=== PATIENT | male | born 1960 | race Two or more races ===

== ENCOUNTER 2019-09-30 15:47 | Inpatient (IN) | payer MEDICAID, OTHER ==
[~2019-09-30] VITALS: Ht 175.3 cm; Wt 69.1 kg
[2019-09-30] MEDS ORDERED: MORPHINE SULFATE 4 MG/ML SYR/VIAL IV ONE (16:15)
[2019-09-30] MEDS ORDERED: ONDANSETRON HCL 4 MG/2 ML VIAL IV ONE (16:15)
[2019-09-30 16:18] LABS: Basophils # (auto) 0 uL; Basophils % (auto) 0.3 % (0.0-2.0); Eosinophils # (auto) 0.3 uL; Eosinophils % (auto) 2.2 % (0.0-7.0); Hematocrit 47.8 % (41.0-53.0); Hemoglobin 16.2 g/dL (13.5-17.5); Lymphocytes % (auto) 21.9 % (10.0-50.0); Mean Corpuscular Hemoglobin 30.9 pg (28.0-32.0); Mean Corpuscular Hgb Conc. 33.8 g/dL (32.0-36.0); Mean Corpuscular Volume 91.3 fL (80.0-100.0); Monocytes # (auto) 1.2 uL; Monocytes % (auto) 8.4 % (0.0-12.0); Neutrophils # (auto) 9.2 uL; Neutrophils % (auto) 67.2 % (37.0-80.0); Nucleated Red Blood Cells % 0.1 %; Platelet Count (auto) 368 10^3/uL (140-450); Red Blood Cells 5.24 10^6/uL (4.5-5.90); Red Cell Distribution Width 14.5 % (11.8-14.3); White Blood Cell 13.8 10^3/uL (4.4-10.8)
[2019-09-30 16:34] LABS: Albumin 3.4 g/dL (3.4-5.0); Anion Gap 9 (5-15); Blood Urea Nitrogen 15 mg/dL (7-18); Calcium 9.1 mg/dL (8.5-10.1); Carbon Dioxide 24 mmol/L (21-32); Chloride 103 mmol/L (98-107); Glucose 300 mg/dL (74-106); Magnesium 2.1 mg/dL (1.6-2.6); Potassium 4.1 mmol/L (3.5-5.1); Sodium 136 mmol/L (136-145)
[2019-09-30 16:39] LABS: Alanine Aminotransferase 23 U/L (16-61); Alkaline Phosphatase 103 U/L (45-117); Aspartate Aminotransferase 17 U/L (15-37); BUN/Creatinine Ratio 12.8; Bilirubin, Total 0.6 mg/dL (0.2-1.0); GFR African American 82 mL/min; GFR Non-African American 67 mL/min; Total Protein 7.2 g/dL (6.4-8.2)
[2019-09-30 16:56] LABS: INR 1.04 (0.9-1.15); Partial Thromboplastin Time 28.1 sec (23.64-32.05)
[2019-09-30] MEDS ORDERED: GABAPENTIN 300 MG CAP PO ONE (17:45)
[2019-09-30] MEDS ORDERED: NITROGLYCERIN 50MG/250ML 250 ML IV ONE (17:45)
[2019-09-30] MEDS ORDERED: HEPARIN SODIUM (PORCINE) 5000 UNITS/ML 1ML VIAL IV ONE (17:45)
[2019-09-30] MEDS ORDERED: HYDROcodone-ACET 5/325MG TAB PO PRN (18:00)
[2019-09-30] MEDS ORDERED: ACETAMINOPHEN 500 MG TAB PO PRN (18:00)
[2019-09-30] MEDS ORDERED: hydrALAZINE HCL 20 MG/ML VL IV PRN (18:00)
[2019-09-30] MEDS ORDERED: DEXTROSE (50%) 50ML SYRG IV PRN (18:00)
[2019-09-30] MEDS ORDERED: NITROGLYCERIN 0.4 MG SL TAB SL PRN (18:00)
[2019-09-30] MEDS ORDERED: ONDANSETRON HCL 4 MG/2 ML VIAL IV PRN (18:00)
[2019-09-30] MEDS ORDERED: SODIUM CHLORIDE 0.9% 1,000 ML IV ONE (18:00)
[2019-09-30] MEDS ORDERED: MORPHINE SULF INJ 2 MG/ML SYRINGE 1ML IV PRN (18:00)
[2019-09-30] MEDS: ATORVASTATIN 20 MG TAB PO SCH (22:28)
[2019-09-30] MEDS: METOPROLOL TARTRATE 25 MG TAB PO SCH (22:28)
[2019-09-30] MEDS: ACCU-CHEK COMFORT CURVE STRIP VI SCH (22:41)
[2019-09-30] MEDS: InsuLIN REG 1unit/0.01ml Soln (100units/ml) SC SCH (22:41)
[2019-10-01] MEDS ORDERED: HEPARIN DRIP/D5W 100UNITS/ML 250 ML IV SCH (00:30)
[2019-10-01 06:36] LABS: BUN/Creatinine Ratio 19.1; Calcium 8.6 mg/dL (8.5-10.1); Potassium 4.2 mmol/L (3.5-5.1)
[2019-10-01] MEDS: ACCU-CHEK COMFORT CURVE STRIP VI SCH ×4 (07:07→21:46)
[2019-10-01] MEDS: InsuLIN REG 1unit/0.01ml Soln (100units/ml) SC SCH ×5 (07:09→21:46)
[2019-10-01] MEDS: ASPirin-EC 81 mg tab PO SCH (10:30)
[2019-10-01] MEDS: METOPROLOL TARTRATE 25 MG TAB PO SCH ×2 (10:31→21:46)
[2019-10-01] MEDS: LISINOPRIL 10 MG TAB PO SCH (10:31)
[2019-10-01] MEDS: FAMOTIDINE 20 MG TAB PO SCH (10:31)
[2019-10-01] MEDS ORDERED: ADENOSINE 53 MG in GIVE UN-DILUTED 0 ML IV ONE (12:45)
[2019-10-01] MEDS: GABAPENTIN 400 MG CAP PO SCH ×2 (14:00→21:46)
[2019-10-01] MEDS ORDERED: LIDOCAINE 2%HCL (LOCAL ANESTH.) INJ 20ML MDV ONE (14:06)
[2019-10-01] MEDS ORDERED: IOHEXOL 350 MG/ML 100ML IJ ONE ×2 (14:06→14:38)
[2019-10-01] MEDS ORDERED: ANGIOMAX 250 MG VIAL IV ONE (14:10)
[2019-10-01] MEDS ORDERED: SODIUM CHL 0.9% 50 ML ONE ×2 (14:11→14:52)
[2019-10-01] MEDS ORDERED: MIDAZOLAM HCL 1MG/1ML-2 ML VIAL ONE ×2 (14:11→14:56)
[2019-10-01] MEDS ORDERED: fentaNYL CITRATE 100 MCG/2 ML VL ONE ×2 (14:11→14:55)
[2019-10-01] MEDS ORDERED: ADENOSINE 90 MG/30 ML INJ IV ONE (14:52)
[2019-10-01] MEDS ORDERED: diphenhdrAMINE HCL 50 MG/1 ML VL ONE (15:14)
[2019-10-01] MEDS ORDERED: METOPROLOL TARTRATE 1MG/1ML-5ML VIAL IV ONE ×3 (15:14→17:00)
[2019-10-01] MEDS ORDERED: FLUMAZENIL 0.1 MG/ML INJ 10ML MDV IV ONE ×2 (16:15→16:21)
--- NOTE | 2019-10-01 17:15 | NUR ---
Received report from Cashier Supervisor ALMA Bro that patient will not be on Heparin drip when patient is transferred to the floor, they will discontinue the Heparin drip order, patient to lay flat in bed up to 8:00 pm tonight. Patient to stay at Cashier Supervisor around 20 minutes more before transfer to the floor ([id number] [id number]).
--- NOTE | 2019-10-01 17:31 | NUR ---
Telemetry admit from Para Educator NATALYA TRISTAN admitted to Telemetry unit after SBAR received. Patient oriented to Melissa Hoff RN, unit, room, bed, and unit policies regarding patient care and visiting hours. Patient now on continuous telemetry monitoring, tele box # 77 and telemetry reading on arrival to unit is 78. Patient placed on standby bedside oxygen, weighed by bed scale and encouraged to call if he needs something. All questions and concerns addressed, patient verbalized understanding. Note: Patient is sleepy, no acute distress noted.
--- NOTE | 2019-10-01 17:35 | NUR ---
Patient sleepy. Patient to lay flat in bed until 8:00 pm tonight, okay to sit up at 8:00 pm when the right groin has no bleeding as per Platen Builder Up ALMA Bro. Bed alarm on.
--- NOTE | 2019-10-01 18:20 | NUR ---
Patient sitting up in bed, eating dinner. Explained to patient he's allowed to sit up at 8:00 pm. Patient continue to eat. Right groin dressing no bleeding noted.
[2019-10-01 18:22] LABS: INR 1.14 (0.9-1.15); Partial Thromboplastin Time 48.5 sec (23.64-32.05)
--- NOTE | 2019-10-01 19:00 | NUR ---
Endorsed patient to night auditor RN Selvin. Heparin drip not to be continued as reported by Evp ALMA Bro. Pharmacy is aware.
--- NOTE | 2019-10-01 20:00 | NUR ---
OPENING SHIFT NOTE RECEIVED REPORT FROM DAYSHIFT RN. ASSUMING ROLE OF CARE OF PATIENT AT THIS TIME. PATIENT EDUCATED ON PLAN OF CARE FOR THE NIGHT. PATIENT FOUND SITTING UP AT BEDSIDE. PATIENT EDUCATED ON NECESSITY OF LYING FLAT IN BED DUE TO PROCEDURE. PATIENT APPEARED RELUCTANT AND CHOSE TO REMAIN SITTING UP. INCISION SITE INSPECTED AND DRESSING IS CLEAN DRY AND INTACT. BED LOWERED, CALL LIGHT WITHIN REACH, AND PATIENT WILL BE ROUNDED ON EVERY HOUR AND NEEDED.
--- NOTE | 2019-10-01 20:30 | NUR ---
IV removal IV DC'd with clean sterile technique, catheter fully intact. Pressure dressing applied to site. Patient tolerated well. NOTE: IV LOCATED IN RIGHT AC. PATIENT STATES THAT IT FELL OFF. DRESSING APPLIED AND WILL CONTINUE TO MONITOR.
[2019-10-01] MEDS: ATORVASTATIN 20 MG TAB PO SCH (21:45)
[2019-10-01 22:00] VITALS: BP 140/77
--- NOTE | 2019-10-02 | NUR ---
HOSPITALIST PAGED PATIENT REQUESTING SLEEPING AID. WILL AWAIT CALL BACK OR ORDERS.
[2019-10-02] MEDS ORDERED: TEMAZEPAM 15 MG CAP PO ONE (00:45)
[2019-10-02] MEDS: MORPHINE SULF INJ 2 MG/ML SYRINGE 1ML IV PRN (00:46)
--- NOTE | 2019-10-02 04:53 | NUR ---
PATIENT COMPLAINING OF CHEST PRESSURE EKG PERFORMED. NORMAL SINUS RHYTHM. PATIENT CURRENTLY REFUSING BOTH MORPHINE AND NITRO GLYCERIN AT THIS TIME. BP 130/78 AND HR 95. WILL CONTINUE TO MONITOR.
[2019-10-02 05:14] VITALS: BP 138/78
--- NOTE | 2019-10-02 06:20 | NUR ---
PATIENT AGREES TO TAKE MORPHINE FOR CHEST PAIN AFTER EDUCATING PATIENT ON PROTOCOL FOR CHEST PAIN. PATIENT AGREES TO TAKE MORPHINE FOR CHEST PAIN. PATIENT CONTINUES TO REFUSE NITROGLYCERIN. WILL CONTINUE TO MONITOR.
[2019-10-02] MEDS: ACCU-CHEK COMFORT CURVE STRIP VI SCH ×4 (06:25→21:54)
[2019-10-02] MEDS: GABAPENTIN 400 MG CAP PO SCH ×3 (06:25→21:53)
[2019-10-02] MEDS: InsuLIN REG 1unit/0.01ml Soln (100units/ml) SC SCH ×4 (06:27→21:55)
[2019-10-02 07:15] LABS: Basophils # (auto) 0.1 uL; Basophils % (auto) 0.8 % (0.0-2.0); Eosinophils # (auto) 0.3 uL; Eosinophils % (auto) 1.7 % (0.0-7.0); Hematocrit 46.8 % (41.0-53.0); Hemoglobin 15.5 g/dL (13.5-17.5); Lymphocytes % (auto) 11.5 % (10.0-50.0); Mean Corpuscular Hemoglobin 30.2 pg (28.0-32.0); Mean Corpuscular Hgb Conc. 33.1 g/dL (32.0-36.0); Mean Corpuscular Volume 91.2 fL (80.0-100.0); Monocytes # (auto) 1.3 uL; Monocytes % (auto) 7.3 % (0.0-12.0); Neutrophils # (auto) 13.4 uL; Neutrophils % (auto) 78.7 % (37.0-80.0); Nucleated Red Blood Cells % 0.2 %; Platelet Count (auto) 325 10^3/uL (140-450); Red Blood Cells 5.13 10^6/uL (4.5-5.90); Red Cell Distribution Width 14.6 % (11.8-14.3); White Blood Cell 17.1 10^3/uL (4.4-10.8)
--- NOTE | 2019-10-02 07:30 | NUR ---
Opening Shift Note RECEIVED REPORT FROM NOC RN. Assumed care of patient, awake and alert. No S/S of distress/SOB or pain. BED IN LOWEST, LOCKED POSITION WITH SIDERAILS UP x2 AND CALL LIGHT WITHIN REACH. Instructed on POC and to call for assist PRN, will continue to monitor for changes Q1hr and PRN.
[2019-10-02 08:21] LABS: Potassium 3.8 mmol/L (3.5-5.1)
[2019-10-02 08:22] LABS: BUN/Creatinine Ratio 16.9; Calcium 8.9 mg/dL (8.5-10.1)
--- NOTE | 2019-10-02 08:25 | NUR ---
CRITICAL LAB VALUE TROPONIN 14.7
--- NOTE | 2019-10-02 08:45 | NUR ---
PAGED HOSPITALIST REGARDING CRITICAL LAB VALUE.
[2019-10-02 09:00] VITALS: BP 143/80
[2019-10-02] MEDS: ASPirin-EC 81 mg tab PO SCH (10:00)
[2019-10-02] MEDS: CLOPIDOGREL BISULFATE 75 MG TAB PO SCH (10:00)
[2019-10-02] MEDS: METOPROLOL TARTRATE 25 MG TAB PO SCH ×2 (10:01→21:54)
[2019-10-02] MEDS: FAMOTIDINE 20 MG TAB PO SCH (10:01)
[2019-10-02] MEDS: LISINOPRIL 10 MG TAB PO SCH (10:01)
[2019-10-02 11:36] LABS: Urine Bacteria NONE SEEN /hpf (None Seen); Urine Blood Negative /uL (Negative); Urine Specific Gravity 1.016 (1.001-1.035); Urine WBC <1 /hpf (0 - 3)
[2019-10-02] MEDS ORDERED: DOCUSATE SOD 100 MG CAP PO PRN (14:45)
--- NOTE | 2019-10-02 15:12 | NUR ---
CRITICAL LAB VALUE TROPONIN 12.5
[2019-10-02 17:00] VITALS: BP 132/85
[2019-10-02] MEDS: ATORVASTATIN 20 MG TAB PO SCH (21:52)
[2019-10-02 22:00] VITALS: BP 142/76
[2019-10-03] VITALS (10 sets, daily range): BP systolic 100–157; BP diastolic 57–91
[2019-10-03] MEDS: GABAPENTIN 400 MG CAP PO SCH ×3 (06:18→22:19)
[2019-10-03] MEDS: ACCU-CHEK COMFORT CURVE STRIP VI SCH ×4 (06:25→22:21)
[2019-10-03] MEDS: InsuLIN REG 1unit/0.01ml Soln (100units/ml) SC SCH ×4 (06:26→22:24)
--- NOTE | 2019-10-03 07:12 | NUR ---
laborer general called re patient will have LHC at 8am. Patient informed of POC and states he will sign the consent once he spoke with MD. Advised patient not to eat anything, patient verbalized understanding. Endorsed care to Roberta MARQUEZ.
[2019-10-03 07:22] LABS: Basophils # (auto) 0.2 uL; Basophils % (auto) 1.5 % (0.0-2.0); Eosinophils # (auto) 0.4 uL; Eosinophils % (auto) 3.1 % (0.0-7.0); Hemoglobin 15.9 g/dL (13.5-17.5); Lymphocytes # (auto) 2.7 uL; Lymphocytes % (auto) 21.4 % (10.0-50.0); Mean Corpuscular Hemoglobin 30.7 pg (28.0-32.0); Mean Corpuscular Hgb Conc. 33.8 g/dL (32.0-36.0); Mean Corpuscular Volume 90.9 fL (80.0-100.0); Monocytes # (auto) 1.5 uL; Monocytes % (auto) 11.8 % (0.0-12.0); Neutrophils # (auto) 7.9 uL; Neutrophils % (auto) 62.2 % (37.0-80.0); Nucleated Red Blood Cells % 0.2 %; Platelet Count (auto) 326 10^3/uL (140-450); Red Blood Cells 5.18 10^6/uL (4.5-5.90); Red Cell Distribution Width 14.5 % (11.8-14.3); White Blood Cell 12.7 10^3/uL (4.4-10.8)
[2019-10-03 07:30] LABS: Anion Gap 7 (5-15); Blood Urea Nitrogen 21 mg/dL (7-18); Calcium 9.4 mg/dL (8.5-10.1); Carbon Dioxide 23 mmol/L (21-32); Chloride 109 mmol/L (98-107); Cholesterol 146 mg/dL (< 200); Glucose 201 mg/dL (74-106); Magnesium 2.1 mg/dL (1.6-2.6); Sodium 139 mmol/L (136-145)
[2019-10-03] MEDS ORDERED: HEPARIN IN NS 1000Units/500mL 1,500 ML ONE (07:31)
[2019-10-03] MEDS ORDERED: LIDOCAINE 2%HCL (LOCAL ANESTH.) INJ 20ML MDV ONE (07:31)
[2019-10-03] MEDS ORDERED: IOHEXOL 350 MG/ML 100ML IJ ONE ×3 (07:31→08:40)
[2019-10-03 07:35] LABS: BUN/Creatinine Ratio 25.6; GFR African American 123 mL/min; GFR Non-African American 102 mL/min; HDL Cholesterol 21 mg/dL (40-59); Triglycerides 445 mg/dL (< 150)
--- NOTE | 2019-10-03 08:00 | NUR ---
RECEIVED PATIENT ALERT AND ORIENTED X4, NOT IN DISTRESS AND DENIED PAIN, CLEAR LS IN BILATERAL LUNG LOBES, RR=18, COUGHING AND DEEP BREATHING ENCOURAGED, DEMONSTRATED WELL, SR R=82 ON TELE MONITOR, DENIED SOB AND CHEST PAIN AT THIS MOMENT, ABDOMEN SOFT WITH ACTIVE BS, LAT BM=09/30/19, KEEP NPO ORDERED, SKIN INTACT WARM TO TOUCH, WENT ON BED TO SET UP AND CHARGER, WILL CONTINUE FOLLOW UP.
[2019-10-03] MEDS ORDERED: ANGIOMAX 250 MG VIAL IV ONE ×2 (08:08→09:16)
[2019-10-03] MEDS ORDERED: SODIUM CHL 0.9% 50 ML ONE ×2 (08:08→09:16)
[2019-10-03] MEDS ORDERED: GLYCOPYRROLATE 0.2 MG/ML 1ML VIAL ONE (08:14)
[2019-10-03] MEDS ORDERED: PHENYLEPHRINE HCL 10 MG/ML VL ONE (08:23)
[2019-10-03] MEDS ORDERED: DOPamine 1600MCG/ML D5W 0 ML IV ONE (08:23)
[2019-10-03] MEDS ORDERED: ATROPINE SULF 1 MG/10ml SYR ONE (08:56)
[2019-10-03] MEDS ORDERED: diphenhdrAMINE HCL 50 MG/1 ML VL ONE (09:35)
[2019-10-03] MEDS ORDERED: hydrALAZINE HCL 20 MG/ML VL ONE (09:47)
[2019-10-03] MEDS ORDERED: CLOPIDOGREL BISULFATE 75 MG TAB ONE (09:50)
[2019-10-03] MEDS ORDERED: ASPirin 81 mg TAB ONE (09:50)
[2019-10-03] MEDS: ASPirin-EC 81 mg tab PO SCH (10:00)
[2019-10-03] MEDS: CLOPIDOGREL BISULFATE 75 MG TAB PO SCH (10:00)
[2019-10-03] MEDS: LISINOPRIL 10 MG TAB PO SCH (11:17)
[2019-10-03] MEDS: FAMOTIDINE 20 MG TAB PO SCH (11:17)
[2019-10-03] MEDS: METOPROLOL TARTRATE 25 MG TAB PO SCH ×2 (11:17→22:21)
[2019-10-03] MEDS: MORPHINE SULF INJ 2 MG/ML SYRINGE 1ML IV PRN (11:18)
--- NOTE | 2019-10-03 12:00 | NUR ---
CAME FROM PATCHING MACHINE OPERATOR, ALERT AND ORIENTED X4, LT GROIN HEART CATH SITE INTACT ,COVERED WITH DRY AND INTACT DRESSING ABLE TO WIGGLE TOE, PULSE PALPABLE, CAP REFILL <3, LAY FLAT UP 1130, COOPERATED WELL, TOLERATED LUNCH TRAY WELL, REMINDED TO BRING HOME MEDICATION LIST, VERBALIZED UNDERSTANDING.
--- NOTE | 2019-10-03 15:11 | NUR ---
REPORT WAS GIVEN TO THE RECEIVING RN.
--- NOTE | 2019-10-03 15:12 | NUR ---
ASSUMED CARE OF PATIENT. PATIENT IS RESTING IN BED , NO S/S OF DISTRESS NOTED OR STATED. NO C/O PAIN LEFT GROIN DRESSING IS CLEAN DRY AND INTACT. BED AT LOWEST LOCKED POSITION, BED SIDE RAILS UP X2 AND CALL LIGHT WITHIN REACH. WILL CONTINUE TO MONITOR Q1HR AND NEEDED.
--- NOTE | 2019-10-03 16:07 | NUR ---
Left heart cath Vital signs BP 115/67, HR 95, SPO2 96%, RR, 18
--- NOTE | 2019-10-03 18:43 | NUR ---
CLOSING NOTE Patient currently having dinner, no S/S of distress SOB, or pain noted/reported. Call light within reach. Bed on low position, and locked. Patient instructed on calling for assistance as needed. Will give report to NOC nurse. Signed: 10/03/19 at 1843 by TONIA CALDERA SN <Co-Signature Required> Co-Signed: 10/03/19 at 1843 by Clementine Collier RN
--- NOTE | 2019-10-03 19:30 | NUR ---
Opening Shift Note Assumed care of patient, pt laying in bed awake, alert and oriented x4. Respirations are normal and non-labored, no S/S of distress/SOB or pain. Instructed on POC and to call for assist, call light is within reach. Safety measures in place, bed set at lowest position. Will continue to monitor for changes Q1hr and PRN. Signed: 10/03/19 at 2024 by TONIA JUNG SN <Co-Signature Required> Co-Signed: 10/03/19 at 2024 by Mary Ann Polk RN
[2019-10-03] MEDS: ATORVASTATIN 20 MG TAB PO SCH (22:20)
[2019-10-04 05:43] VITALS: BP 148/74
[2019-10-04] MEDS: GABAPENTIN 400 MG CAP PO SCH ×2 (06:18→15:36)
[2019-10-04] MEDS: ACCU-CHEK COMFORT CURVE STRIP VI SCH ×3 (06:20→16:59)
[2019-10-04] MEDS: InsuLIN REG 1unit/0.01ml Soln (100units/ml) SC SCH ×3 (06:22→16:59)
[2019-10-04 06:41] LABS: Basophils # (auto) 0.1 uL; Eosinophils # (auto) 0.4 uL; Eosinophils % (auto) 3.1 % (0.0-7.0); Hematocrit 46.8 % (41.0-53.0); Hemoglobin 15.7 g/dL (13.5-17.5); Lymphocytes # (auto) 2.3 uL; Lymphocytes % (auto) 17.3 % (10.0-50.0); Mean Corpuscular Hemoglobin 30.7 pg (28.0-32.0); Mean Corpuscular Hgb Conc. 33.6 g/dL (32.0-36.0); Mean Corpuscular Volume 91.2 fL (80.0-100.0); Monocytes # (auto) 1.9 uL; Neutrophils # (auto) 8.6 uL; Neutrophils % (auto) 64.6 % (37.0-80.0); Platelet Count (auto) 311 10^3/uL (140-450); Red Blood Cells 5.13 10^6/uL (4.5-5.90); Red Cell Distribution Width 14.5 % (11.8-14.3); White Blood Cell 13.3 10^3/uL (4.4-10.8)
[2019-10-04 07:02] LABS: BUN/Creatinine Ratio 23.3; Calcium 8.9 mg/dL (8.5-10.1)
[2019-10-04 07:14] LABS: Cholesterol 126 mg/dL (< 200)
[2019-10-04 07:17] LABS: HDL Cholesterol 18 mg/dL (40-59); Triglycerides 421 mg/dL (< 150)
--- NOTE | 2019-10-04 07:30 | NUR ---
Opening Shift Note Assumed care, patient awake and alert currently walking around room. No S/S of distress/SOB or pain noted/reported. Patiet instructed on POC and to call for assistance as needed Patient bed in low position and locked. Will continue to monitor for changes Q1hr and PRN. Signed: 10/04/19 at 901 by TONIA CALDERA SN <Co-Signature Required> Co-Signed: 10/04/19 at 901 by Clementine Collier RN
[2019-10-04 08:00] VITALS: BP 138/69
[2019-10-04] MEDS: ASPirin-EC 81 mg tab PO SCH (09:08)
[2019-10-04] MEDS: CLOPIDOGREL BISULFATE 75 MG TAB PO SCH (09:08)
[2019-10-04] MEDS: FAMOTIDINE 20 MG TAB PO SCH (09:09)
[2019-10-04] MEDS: METOPROLOL TARTRATE 25 MG TAB PO SCH (09:09)
[2019-10-04 09:42] VITALS: BP 138/69
[2019-10-04] MEDS ORDERED: LISINOPRIL 10 MG TAB PO SCH (10:00)
--- NOTE | 2019-10-04 12:32 | NUR ---
NUTRITION ASSESSMENT NOTES Please refer to link notes of nutrition screen form filed under the intervention section of the plan of care for further details. Est. Needs: 1750 kcal to 2050 kcal (25-30 kcal/kgBW), 69 gms to 83 gms pro (1.0-1.2 gms/kgBW). Will continue to monitor pertinent labs and reassess nutrient need prn Thank you. Addendum: 10/04/19 at [address] Amended: Links added.
[2019-10-04 13:00] VITALS: BP 108/69
[2019-10-04 15:46] VITALS: BP 108/69
[2019-10-04 16:29] VITALS: BP 108/69
--- NOTE | 2019-10-04 17:10 | NUR ---
Discharge instructions given as ordered. Encourage to follow up with PMD as instructed. All questions and concerns addressed. Patient verbalized understanding. Medication reconciliation form completed and copy given to patient. IV removed with catheter intact, pressure dressing applied.Telemetry unit returned to ICU. Patient taken to main lobby with all personal belongings via wheelchair to wait for family member to pick him up. Patient was accompanied by staff. No distress noted at time of departure.
== END 2019-10-04 17:15 | disposition home or self-care (01) | DRG 175 ==
LOC: ER 15:47 → TELE 15:48 → TELE-WESTW 10-01 17:36
PROVIDERS: ADMIT Nurse Practitioner Acute Care; ATTEND Internal Medicine
PROC: 02703ZZ Dilation of Coronary Artery, One Artery, Percutaneous Approach (ICD-10-PCS; 2019-10-01)
PROC: B240ZZ3 Ultrasonography of Single Coronary Artery, Intravascular (ICD-10-PCS; 2019-10-01)
PROC: 4A033BC Measurement of Arterial Pressure, Coronary, Percutaneous Approach (ICD-10-PCS; 2019-10-01)
PROC: 4A023N7 Measurement of Cardiac Sampling and Pressure, Left Heart, Percutaneous Approach (ICD-10-PCS; 2019-10-01)
PROC: B2111ZZ Fluoroscopy of Multiple Coronary Arteries using Low Osmolar Contrast (ICD-10-PCS; 2019-10-01)
PROC: B2151ZZ Fluoroscopy of Left Heart using Low Osmolar Contrast (ICD-10-PCS; 2019-10-01)
PROC: B2131ZZ Fluoroscopy of Multiple Coronary Artery Bypass Grafts using Low Osmolar Contrast (ICD-10-PCS; 2019-10-01)
PROC: B2181ZZ Fluoroscopy of Left Internal Mammary Bypass Graft using Low Osmolar Contrast (ICD-10-PCS; 2019-10-01)
PROC: B3101ZZ Fluoroscopy of Thoracic Aorta using Low Osmolar Contrast (ICD-10-PCS; 2019-10-01)
PROC: 027034Z Dilation of Coronary Artery, One Artery with Drug-eluting Intraluminal Device, Percutaneous Approach (ICD-10-PCS; principal; 2019-10-03)
PROC: 03743DZ Dilation of Left Subclavian Artery with Intraluminal Device, Percutaneous Approach (ICD-10-PCS; 2019-10-03)
PROC: 037 Upper Arteries, Dilation (ICD-10-PCS; 2019-10-03)
PROC: 037434Z Dilation of Left Subclavian Artery with Drug-eluting Intraluminal Device, Percutaneous Approach (ICD-10-PCS; 2019-10-03)
DX: T82.855A Stenosis of coronary artery stent, initial encounter (principal); I21.4 Non-ST elevation (NSTEMI) myocardial infarction; E11.21 Type 2 diabetes mellitus with diabetic nephropathy; E11.40 Type 2 diabetes mellitus with diabetic neuropathy, unspecified; E11.22 Type 2 diabetes mellitus with diabetic chronic kidney disease; E11.51 Type 2 diabetes mellitus with diabetic peripheral angiopathy without gangrene; I25.110 Atherosclerotic heart disease of native coronary artery with unstable angina pectoris; E11.65 Type 2 diabetes mellitus with hyperglycemia; I12.9 Hypertensive chronic kidney disease with stage 1 through stage 4 chronic kidney disease, or unspecified chronic kidney disease; N18.3 Chronic kidney disease, stage 3 (moderate); K59.00 Constipation, unspecified; Y83.1 Surgical operation with implant of artificial internal device as the cause of abnormal reaction of the patient, or of later complication, without mention of misadventure at the time of the procedure; E78.5 Hyperlipidemia, unspecified; E66.9 Obesity, unspecified; I70.8 Atherosclerosis of other arteries; I65.02 Occlusion and stenosis of left vertebral artery; I25.5 Ischemic cardiomyopathy; Z95.1 Presence of aortocoronary bypass graft; I25.2 Old myocardial infarction; Z95.5 Presence of coronary angioplasty implant and graft; Z87.891 Personal history of nicotine dependence; Z79.84 Long term (current) use of oral hypoglycemic drugs; Z79.02 Long term (current) use of antithrombotics/antiplatelets; Z79.899 Other long term (current) drug therapy; Z68.22 Body mass index [BMI] 22.0-22.9, adult; Y92.89 Other specified places as the place of occurrence of the external cause
CPT/HCPCS: 36415; 37236; 71045; 75605; 80048; 80053; 80061; 81001; 82306; 82565; 82962; 83036; 83735; 83880; 84443; 84484; 85025; 85576; 85610; 85730; 86141; 86850; 86900; 86901; 92920; 92928; 92978; 93005; 93306; 93459; 93571; 93926; 96374; 96375; 99152; 99153; 99291; C1887; G0378; J0153; J1815; J2250; J2405

== ENCOUNTER 2019-10-30 14:57 | Inpatient (IN) | payer MEDICAID ==
[~2019-10-30] VITALS: Ht 177.8 cm; Wt 23.0 kg
[2019-10-30 15:39] LABS: Basophils # (auto) 0.2 uL; Basophils % (auto) 1.3 % (0.0-2.0); Eosinophils # (auto) 0.4 uL; Eosinophils % (auto) 3.6 % (0.0-7.0); Hemoglobin 15.1 g/dL (13.5-17.5); Lymphocytes # (auto) 2.8 uL; Lymphocytes % (auto) 23.3 % (10.0-50.0); Mean Corpuscular Hemoglobin 29.9 pg (28.0-32.0); Mean Corpuscular Hgb Conc. 33.6 g/dL (32.0-36.0); Mean Corpuscular Volume 88.8 fL (80.0-100.0); Monocytes # (auto) 1.1 uL; Monocytes % (auto) 8.9 % (0.0-12.0); Neutrophils # (auto) 7.6 uL; Neutrophils % (auto) 62.9 % (37.0-80.0); Nucleated Red Blood Cells % 0.1 %; Platelet Count (auto) 334 10^3/uL (140-450); Red Blood Cells 5.06 10^6/uL (4.5-5.90); Red Cell Distribution Width 14.1 % (11.8-14.3)
[2019-10-30 15:56] LABS: Alanine Aminotransferase 18 U/L (16-61); Albumin 3.3 g/dL (3.4-5.0); Anion Gap 10 (5-15); Aspartate Aminotransferase 9 U/L (15-37); BUN/Creatinine Ratio 15.6; Blood Urea Nitrogen 12 mg/dL (7-18); Carbon Dioxide 20 mmol/L (21-32); Chloride 104 mmol/L (98-107); GFR African American 132 mL/min; GFR Non-African American 109 mL/min; Glucose 320 mg/dL (74-106); Potassium 3.9 mmol/L (3.5-5.1); Sodium 134 mmol/L (136-145)
[2019-10-30 16:01] LABS: Alkaline Phosphatase 128 U/L (45-117); Bilirubin, Total 0.4 mg/dL (0.2-1.0); Total Protein 6.9 g/dL (6.4-8.2)
[2019-10-30] MEDS ORDERED: SODIUM CHLORIDE 0.9% 1,000 ML IV ONE (17:45)
[2019-10-30 18:15] LABS: Amylase 59 U/L (25-115); Lipase 176 U/L (73-393)
[2019-10-30] MEDS ORDERED: ACETYLCYSTEINE ORAL for CIN 20%(200MG/ML) 4ML PO ONE (18:15)
[2019-10-30 18:26] LABS: INR 1.05 (0.9-1.15); Partial Thromboplastin Time 29.6 sec (23.64-32.05)
[2019-10-30 19:09] LABS: Urine Bacteria NONE SEEN /hpf (None Seen); Urine Blood Negative /uL (Negative); Urine Specific Gravity 1.015 (1.001-1.035); Urine WBC <1 /hpf (0 - 3)
[2019-10-30 19:34] LABS: Lactic Acid w/Reflex 2.5 mmol/L (0.4-2.0)
[2019-10-30] MEDS ORDERED: HYDROcodone-ACET 5/325MG TAB PO PRN (19:45)
[2019-10-30] MEDS ORDERED: TEMAZEPAM 15 MG CAP PO PRN (19:45)
[2019-10-30] MEDS ORDERED: ACETAMINOPHEN 325 MG TAB PO PRN (19:45)
[2019-10-30] MEDS ORDERED: DEXTROSE (50%) 50ML SYRG IV PRN (19:45)
[2019-10-30] MEDS ORDERED: ONDANSETRON HCL 4 MG/2 ML VIAL IV PRN (19:45)
[2019-10-30 21:45] VITALS: BP 157/76
--- NOTE | 2019-10-30 21:45 | NUR ---
MS admit from ER AZALEA,NATALYA admitted to MS. Patient oriented to Jenny HendrixRN primary RN, unit, room, bed, and unit policies regarding patient care and visiting hours. AAOx4, on room air, on bedrest for dizziness. No acute S/S of distress, SOB or pain. Patient weighed by bed scale and encouraged to call if they need something. All questions and concerns addressed, patient verbalized understanding. Bed in lowest locked position, side rails up x2, call light within reach. Will continue to monitor every hour and as needed.
[2019-10-30] MEDS ORDERED: ATORVASTATIN 20 MG TAB PO SCH (22:00)
[2019-10-30] MEDS: FAMOTIDINE 20 MG TAB PO SCH (22:26)
[2019-10-30] MEDS: GABAPENTIN 400 MG CAP PO SCH (22:26)
[2019-10-31] MEDS: ACCU-CHEK COMFORT CURVE STRIP VI SCH ×3 (00:27→12:35)
[2019-10-31] MEDS: InsuLIN REG 1unit/0.01ml Soln (100units/ml) SC SCH ×3 (00:27→12:41)
[2019-10-31 05:00] VITALS: BP 121/67
[2019-10-31] MEDS: GABAPENTIN 400 MG CAP PO SCH ×2 (05:41→14:30)
[2019-10-31 06:30] LABS: Basophils # (auto) 0.1 uL; Basophils % (auto) 0.7 % (0.0-2.0); Eosinophils # (auto) 0.4 uL; Eosinophils % (auto) 3.6 % (0.0-7.0); Hematocrit 45.4 % (41.0-53.0); Hemoglobin 15.2 g/dL (13.5-17.5); Lymphocytes # (auto) 3.6 uL; Lymphocytes % (auto) 28.9 % (10.0-50.0); Mean Corpuscular Hemoglobin 29.9 pg (28.0-32.0); Mean Corpuscular Hgb Conc. 33.6 g/dL (32.0-36.0); Mean Corpuscular Volume 88.9 fL (80.0-100.0); Monocytes # (auto) 1.1 uL; Neutrophils # (auto) 7.2 uL; Neutrophils % (auto) 57.8 % (37.0-80.0); Platelet Count (auto) 312 10^3/uL (140-450); Red Blood Cells 5.11 10^6/uL (4.5-5.90); Red Cell Distribution Width 14.3 % (11.8-14.3); White Blood Cell 12.4 10^3/uL (4.4-10.8)
[2019-10-31 06:52] LABS: BUN/Creatinine Ratio 22.4; Calcium 9.1 mg/dL (8.5-10.1); Potassium 4.2 mmol/L (3.5-5.1)
--- NOTE | 2019-10-31 07:30 | NUR ---
Opening Shift Note Assuming care of patient at this time. Patient is awake and alert. Patient shows no signs or symptoms of distress or shortness of breath. Patient denies pain. Patient verbalizes that he feels weak. Bed is locked and lowered with side rails up x2. Instructed patient on the plan of care for today and to call for assistance as needed. Call light within reach. Will continue to round hourly and as needed.
[2019-10-31 08:46] VITALS: BP 147/77
[2019-10-31] MEDS ORDERED: METOPROLOL SUCCINATE XL 50 MG TAB PO SCH (10:00)
[2019-10-31] MEDS ORDERED: LISINOPRIL 20 MG TAB PO SCH (10:00)
[2019-10-31] MEDS ORDERED: CLOPIDOGREL BISULFATE 75 MG TAB PO SCH (10:00)
[2019-10-31] MEDS: FAMOTIDINE 20 MG TAB PO SCH (10:21)
[2019-10-31] MEDS ORDERED: ASPirin 81 mg TAB PO ONE (10:30)
[2019-10-31 11:23] LABS: Folate (Folic Acid) 8.57 ng/mL (5.38-24)
--- NOTE | 2019-10-31 11:35 | NUR ---
Ambulating Patient ambulating in the room to the hallway. No distress noted. Patient's gait is steady. No apparent weakness noted.
[2019-10-31 12:22] VITALS: BP 147/72
[2019-10-31 15:54] VITALS: BP 147/72
--- NOTE | 2019-10-31 16:30 | NUR ---
Call to Dr. Alvarez's office Call to Dr. Alvarez's office regarding patient's medications. Patient has a history of heart failure, he is currently taking a beta pedro pablo and will be discharged with lisinopril. Meeting necessary requirements per heart failure protocol.
--- NOTE | 2019-10-31 17:18 | NUR ---
Discharge Discharge instructions given as ordered. Encourage to follow up with PMD as instructed. All questions and concerns addressed. Patient verbalized understanding. IV removed with catheter intact, pressure dressing applied. Patient taken to vehicle via wheelchair with all personal belongings, accompanied by staff. No distress noted at time of departure. Patient aware to return next week for procedure with Dr. Foote. Patient states he already arranged the day to return with Dr. Alvarez.
[2019-11-01] MEDS ORDERED: ASPirin 81 mg TAB PO SCH (10:00)
== END 2019-10-31 17:20 | disposition home or self-care (01) | DRG 420 ==
LOC: EDBD 14:57 → EDSEX 14:57 → ER 15:07 → WEST WING 15:08
PROVIDERS: ADMIT Nurse Practitioner; ATTEND Internal Medicine
DX: E11.65 Type 2 diabetes mellitus with hyperglycemia (principal); E11.51 Type 2 diabetes mellitus with diabetic peripheral angiopathy without gangrene; I11.0 Hypertensive heart disease with heart failure; I50.22 Chronic systolic (congestive) heart failure; I25.10 Atherosclerotic heart disease of native coronary artery without angina pectoris; M48.10 Ankylosing hyperostosis [Forestier], site unspecified; D72.823 Leukemoid reaction; Z95.1 Presence of aortocoronary bypass graft; I25.2 Old myocardial infarction; Z87.891 Personal history of nicotine dependence; Z79.4 Long term (current) use of insulin; Z79.899 Other long term (current) drug therapy
CPT/HCPCS: 36415; 70450; 71045; 74176; 80048; 80053; 81001; 82150; 82607; 82746; 82962; 83036; 83605; 83690; 83880; 84443; 84484; 85025; 85610; 85730; 93886; 93926; G0378; J1815

== ENCOUNTER 2020-06-07 13:03 | Inpatient (IN) | payer MEDICAID ==
[~2020-06-07] VITALS: Ht 177.8 cm; Wt 71.4 kg
[~2020-06-07 13:03] MED LIST: ASPI-394 PO; ATOR1TAB PO; CLOP75TA28 PO; ERGO2000 PO; ERTU5TAB PO; INSU1INJ19 SC; LISI-646 PO; METF-370 PO; METO25TA5 PO
[2020-06-07 15:53] LABS: Basophils # (auto) 0.1 10 ^3/uL (0-0.2); Basophils % (auto) 0.8 % (0.0-2.0); Eosinophils # (auto) 0.4 10 ^3/uL (0-0.8); Eosinophils % (auto) 2.5 % (0.0-7.0); Hematocrit 51.2 % (41.0-53.0); Hemoglobin 16.1 g/dL (13.5-17.5); Lymphocytes # (auto) 3.9 10 ^3/uL (0.4-5.4); Lymphocytes % (auto) 27.4 % (10.0-50.0); Mean Corpuscular Hemoglobin 27.6 pg (28.0-32.0); Mean Corpuscular Hgb Conc. 31.5 g/dL (32.0-36.0); Mean Corpuscular Volume 87.6 fL (80.0-100.0); Monocytes # (auto) 1.3 10 ^3/uL (0-1.3); Monocytes % (auto) 9.4 % (0.0-12.0); Neutrophils # (auto) 8.6 10 ^3/uL (1.6-8.6); Neutrophils % (auto) 59.9 % (37.0-80.0); Nucleated Red Blood Cells % 0.1 %; Platelet Count (auto) 355 10^3/uL (140-450); Red Blood Cells 5.84 10^6/uL (4.5-5.90); White Blood Cell 14.4 10^3/uL (4.4-10.8)
[2020-06-07 16:09] LABS: Albumin 3.3 g/dL (3.4-5.0); Potassium 4.2 mmol/L (3.5-5.1)
[2020-06-07 16:15] LABS: BUN/Creatinine Ratio 27.1; Bilirubin, Total 0.4 mg/dL (0.2-1.0); Total Protein 6.8 g/dL (6.4-8.2)
[2020-06-07 18:30] LABS: Magnesium 2.3 mg/dL (1.6-2.6)
[2020-06-07] MEDS ORDERED: MORPHINE SULF INJ 2 MG/ML SYRINGE 1ML IV PRN ×2 (18:30→20:00)
[2020-06-07] MEDS ORDERED: NITROGLYCERIN 0.4 MG SL TAB SL PRN ×3 (18:30→20:00)
[2020-06-07] MEDS ORDERED: DOCUSATE SOD 100 MG CAP PO PRN (20:00)
[2020-06-07] MEDS ORDERED: LORazepam 0.5 MG TAB PO PRN (20:00)
[2020-06-07] MEDS ORDERED: FAMOTIDINE (10MG/ML) 2ML VL IV ONE (20:00)
[2020-06-07] MEDS ORDERED: DEXTROSE (50%) 50ML SYRG IV PRN (20:00)
[2020-06-07] MEDS ORDERED: ALUM & MAG HYDROX-SIMETH LIQ(MAALOX) 30 ML PO PRN (20:00)
[2020-06-07] MEDS ORDERED: ACETAMINOPHEN 325 MG TAB PO PRN (20:00)
[2020-06-07] MEDS ORDERED: ONDANSETRON HCL 4 MG/2 ML VIAL IV PRN (20:00)
[2020-06-07] MEDS ORDERED: HYDROcodone-ACET 5/325MG TAB PO PRN (20:00)
[2020-06-07] MEDS ORDERED: FUROSEMIDE 20 MG/2 ML VIAL IV ONE (20:00)
--- NOTE | 2020-06-07 21:09 | NUR ---
Admitted this 59 year old male client with the chief complaint of weakness , feeling of numbness to the Left side of the head and dizziness secondary to Symptomatic Carotid Artery Disease. Pt. came from ER department arrived to the [facility] floor by brittany. Pt. in Room air, no s/s of sob or dyspnea. Breathing regular/even and unlabored. Pt. placed to the bed comfortably, changed to gown and keep warm and comfortable. Assessment done from head to toe. Generally skin intact. Pt. independent and can ambulate to the BR with minimal assist. Denies pain @ this time. Telemetry box # 67, SR - Sinus Rhythm @ 60's to 70's @ the monitor. Pt. denies nausea and denies vomiting. IV access @ the Right wrist G # 20, patent and intact. Abdomen soft, flat and non-tender with positive bowel sounds. No wounds present @ the BLE. Pt. on universal or standard precaution only. Gathered data from pt. and keep pt. informed of present medical and nursing care and intervention. Data gathering completed with the help of the resource RN - Jonatan.
--- NOTE | 2020-06-07 21:30 | NUR ---
Pt. given orientation on the [place] unit including hospital policies and routines. Pt. also made aware of the use of call-light, TV, telephone and bed controls and positioning of the bed while resting. Assessment done and completed.
[2020-06-07 21:50] VITALS: BP_SYST 104; BP_SYST 132; BP_DIAS 66; BP_DIAS 70
[2020-06-07 21:51] VITALS: BP 132/70
[2020-06-07] MEDS ORDERED: MECL25TA18 PO (22:12)
[2020-06-07] MEDS ORDERED: PREG75CA PO (22:12)
[2020-06-07] MEDS ORDERED: SACU1TAB PO (22:12)
--- NOTE | 2020-06-07 22:30 | NUR ---
Pt. refused labs. ordered by the Doctor. Refused to be poked by the Lab. Personnel. RN collaborated to the Lab. personnel to come back in other time to convince pt. the importance of the blood draw.
[2020-06-07] MEDS: METOPROLOL TARTRATE 25 MG TAB PO SCH (22:57)
--- NOTE | 2020-06-07 23:00 | NUR ---
Due meds. started and administered to the pt. Pt. provided health teachings and explanation on the use and benefits of the med. given. Pt. aware and keep on reenforcing health nursing care treatments, hospital procedures since pt. has the tendency to refused procedures such as laboratory 'blood draw". Keep pt. informed and oriented to the unit.
[2020-06-07] MEDS: ACCU-CHEK COMFORT CURVE STRIP VI SCH (23:02)
[2020-06-07] MEDS: ATORVASTATIN 20 MG TAB PO SCH (23:22)
[2020-06-07] MEDS: InsuLIN REG 1unit/0.01ml Soln (100units/ml) SC SCH (23:26)
--- NOTE | 2020-06-07 23:55 | NUR ---
Pt. refused the Racquet [facility] - Lab. Personnel for the blood draw. Lab. Personnel promised to come back for AM labs.
[2020-06-08] MEDS: SODIUM CHLORIDE 0.9% 1,000 ML IV SCH ×2 (00:24→12:29)
--- NOTE | 2020-06-08 00:30 | NUR ---
Pt. calm and resting. Keep warm, safe and comfortable in bed with call-light within reach. SR - Sinus Rhythm @ the monitor @ the 60's, 70's and 80's.
[2020-06-08] MEDS: MORPHINE SULF INJ 2 MG/ML SYRINGE 1ML IV PRN (00:34)
--- NOTE | 2020-06-08 04:00 | NUR ---
Pt. resting, sleeps and awakens intermittently. NSR @ the monitor @ the Tele box # 67. Keep pt. safe and plastering contractor bed.
[2020-06-08 05:00] VITALS: BP 104/47
[2020-06-08] MEDS: FUROSEMIDE 20 MG/2 ML VIAL IV SCH ×2 (06:11→19:03)
[2020-06-08] MEDS: ACCU-CHEK COMFORT CURVE STRIP VI SCH ×4 (07:05→22:20)
[2020-06-08] MEDS: InsuLIN REG 1unit/0.01ml Soln (100units/ml) SC SCH ×4 (07:16→22:45)
--- NOTE | 2020-06-08 08:22 | NUR ---
VIEWED RESTING COMFORTABLY WITH EYES CLOSED ON HIS RIGHT SIDE. CALL LIGHT WITHIN REACH.
[2020-06-08 09:00] VITALS: BP 105/64
[2020-06-08] MEDS ORDERED: IOHEXOL 350 MG/ML 100ML IJ ONE (09:11)
--- NOTE | 2020-06-08 09:43 | NUR ---
RADIOLOGY CALLS REQUESTS 20GA IV FOR CT ANGIOGRAM OF CAROTIDS.
[2020-06-08] MEDS ORDERED: LISINOPRIL 20 MG TAB PO SCH (10:00)
[2020-06-08 10:29] LABS: Basophils # (auto) 0.1 10 ^3/uL (0-0.2); Basophils % (auto) 0.6 % (0.0-2.0); Eosinophils # (auto) 0.3 10 ^3/uL (0-0.8); Eosinophils % (auto) 2.4 % (0.0-7.0); Hematocrit 50.2 % (41.0-53.0); Lymphocytes # (auto) 2.7 10 ^3/uL (0.4-5.4); Lymphocytes % (auto) 20.3 % (10.0-50.0); Mean Corpuscular Hemoglobin 27.9 pg (28.0-32.0); Mean Corpuscular Hgb Conc. 31.9 g/dL (32.0-36.0); Mean Corpuscular Volume 87.4 fL (80.0-100.0); Monocytes # (auto) 1.2 10 ^3/uL (0-1.3); Monocytes % (auto) 8.6 % (0.0-12.0); Neutrophils # (auto) 9.2 10 ^3/uL (1.6-8.6); Neutrophils % (auto) 68.1 % (37.0-80.0); Platelet Count (auto) 331 10^3/uL (140-450); Red Blood Cells 5.74 10^6/uL (4.5-5.90); Red Cell Distribution Width 15.9 % (11.8-14.3); White Blood Cell 13.4 10^3/uL (4.4-10.8)
[2020-06-08 10:44] LABS: Albumin 3.3 g/dL (3.4-5.0); Calcium 8.9 mg/dL (8.5-10.1); Magnesium 2.3 mg/dL (1.6-2.6); Potassium 4.3 mmol/L (3.5-5.1)
[2020-06-08 10:49] LABS: BUN/Creatinine Ratio 26.9; Bilirubin, Total 0.4 mg/dL (0.2-1.0); Cholesterol 101 mg/dL (< 200); HDL Cholesterol 19 mg/dL (40-59); LDL Cholesterol 51 mg/dL (< 100); Phosphorus 4.8 mg/dL (2.5-4.90); Total Protein 6.3 g/dL (6.4-8.2); Triglycerides 334 mg/dL (< 150)
--- NOTE | 2020-06-08 10:57 | NUR ---
AFTER IV START TO LEFT FOREARM WITH 20GA AND PROVIDING LAB WITH SPECIMEN DURING IV START PT GOES TO CT AND HAS NOW RETURNED. PLACED ON TELE. RESTING COMFORTABLY WITH NO COMPLAINTS.
[2020-06-08 12:44] VITALS: BP 118/45
[2020-06-08] MEDS: cefTRIAXone 1GM/50ML D5W 50 ML IV SCH (13:17)
[2020-06-08] MEDS: CLOPIDOGREL BISULFATE 75 MG TAB PO SCH (13:20)
[2020-06-08] MEDS: METOPROLOL TARTRATE 25 MG TAB PO SCH ×2 (13:20→21:40)
[2020-06-08] MEDS: ASPirin-EC 81 mg tab PO SCH (13:20)
[2020-06-08] MEDS: ENOXAPARIN SOD 40 MG/0.4 ML SYRINGE SC SCH (13:21)
[2020-06-08] MEDS: FAMOTIDINE (10MG/ML) 2ML VL IV SCH (13:35)
[2020-06-08] MEDS ORDERED: OPTISON 3ml Vial for INJ IV ONE (14:42)
[2020-06-08 16:55] VITALS: BP 127/79
--- NOTE | 2020-06-08 17:06 | NUR ---
DR. MELTON SEES PT EARLIER TODAY. 12 LEAD EKG PERFORMED AND PLACED ON CHART REQUESTED. IV TO RIGHT INNER WRIST DC REQUESTED BY PT IT WAS IRRITATING HIM. CONTINUES TO DENY ANY DISCOMFORT.
[2020-06-08] MEDS ORDERED: LORazepam 2MG/ML-1ML VIAL IV PRN (21:30)
[2020-06-08] MEDS: ATORVASTATIN 20 MG TAB PO SCH (21:36)
[2020-06-08 22:00] VITALS: BP 120/67
--- NOTE | 2020-06-09 04:00 | NUR ---
Pt. calm and resting. Denies chest pain and denies nausea and vomiting. Pt. sleeping and awakens intermittently.
[2020-06-09] MEDS: MORPHINE SULF INJ 2 MG/ML SYRINGE 1ML IV PRN (04:02)
--- NOTE | 2020-06-09 04:50 | NUR ---
Pt. verbalized feeling of numbness @ the Left side of the head and feeling of weakness and dizziness. Stayed with the pt. checked V/S BP = 147/67, HR = 58/min. 02 sat. @ 100 % on 2L/NC . Pt. provided psychological and emotional support @ the bedside. Called and notified Hospital list ANIL Cook and ave instructions to continue monitoring pt. since the pt. had CT and Angiogram or Carotid check already yesterday 06/08/2020. ANIL Cook made aware that CT of the head and Angiogram done already. Pt. continuously monitored and provided support and bedside nsg. care.
[2020-06-09 05:00] VITALS: BP 136/57
[2020-06-09] MEDS: ACCU-CHEK COMFORT CURVE STRIP VI SCH ×2 (05:11→12:15)
[2020-06-09] MEDS: FUROSEMIDE 20 MG/2 ML VIAL IV SCH (06:00)
--- NOTE | 2020-06-09 06:00 | NUR ---
Pt. refused Lasix IV med. due to present s/s of numbness and weakness of the Left side of the head. Pt. sleeping and resting with BP 156/67, HR = 60/min.
[2020-06-09] MEDS: InsuLIN REG 1unit/0.01ml Soln (100units/ml) SC SCH ×2 (06:34→12:15)
[2020-06-09 09:00] VITALS: BP 131/65
[2020-06-09] MEDS: cefTRIAXone 1GM/50ML D5W 50 ML IV SCH (09:00)
[2020-06-09] MEDS: FAMOTIDINE (10MG/ML) 2ML VL IV SCH (10:00)
[2020-06-09] MEDS: CLOPIDOGREL BISULFATE 75 MG TAB PO SCH (10:30)
[2020-06-09] MEDS: ASPirin-EC 81 mg tab PO SCH (10:30)
[2020-06-09] MEDS: METOPROLOL TARTRATE 25 MG TAB PO SCH ×2 (10:30→11:30)
[2020-06-09] MEDS: ENOXAPARIN SOD 40 MG/0.4 ML SYRINGE SC SCH (11:30)
--- NOTE | 2020-06-09 12:26 | NUR ---
PT REFUSED P.T. EVALUATION BECAUSE HE SAID HE WALKS FINE AND THAT MD IS DISCHARGING HIM TODAY.
[2020-06-09 13:00] VITALS: BP 144/71
--- NOTE | 2020-06-09 13:09 | NUR ---
ELECTROENCEPHALOGRAM PT REFUSED EEG. STATES HE IS BEING DISCHARGED AND DOES NOT WANT TO HAVE TEST DONE. PRIMARY RN AWARE.
--- NOTE | 2020-06-09 16:03 | NUR ---
PT REFUSED BLOOD DRAW AND REPORTEDLY REFUSED EEG TEST. [facility] REPORTS HE HAS REFUSED MRI OF THE BRAIN STATING HE HAD A BRAIN MRI AT [facility] RECENTLY THAT WAS NEGATIVE FOR ANYTHING OF CONCERN. 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 PT CONTINUES TO REPORT SYMPTOMS OF TRANSIENT NUMBNESS TO HEAD AND FACE. HE STATED THAT THE PREVIOUS TEST RESULTS INDICATED 60% CAROTID BLOCKAGE AND HIS UNDERSTANDING IS THAT IT IS NOT SIGNIFICANT ENOUGH TO TREAT. CALL MADE TO DR. MELTON TO CONFIRM NO NEW PRESCRIPTIONS. IV REMOVED FROM LEFT FOREARM. DC INSTRUCTIONS AND MASK PROVIDED. DAUGHTER PICKS UP PT.
[2020-06-12] MEDS ORDERED: ERGOCALCIFEROL 50,000 UNIT(1.25MG) CAP PO SCH (10:00)
== END 2020-06-09 15:35 | disposition home or self-care (01) | DRG 204 ==
LOC: ER 13:03 → TELE 13:04 → TELE-WESTW 21:13
PROVIDERS: ADMIT Hospitalist; ATTEND Internal Medicine
DX: R55 Syncope and collapse (principal); F41.9 Anxiety disorder, unspecified; M48.10 Ankylosing hyperostosis [Forestier], site unspecified; I25.5 Ischemic cardiomyopathy; I11.0 Hypertensive heart disease with heart failure; E78.5 Hyperlipidemia, unspecified; E11.51 Type 2 diabetes mellitus with diabetic peripheral angiopathy without gangrene; E11.42 Type 2 diabetes mellitus with diabetic polyneuropathy; F17.200 Nicotine dependence, unspecified, uncomplicated; I25.118 Atherosclerotic heart disease of native coronary artery with other forms of angina pectoris; R56.9 Unspecified convulsions; I25.2 Old myocardial infarction; Z79.02 Long term (current) use of antithrombotics/antiplatelets; Z79.82 Long term (current) use of aspirin; Z79.84 Long term (current) use of oral hypoglycemic drugs; Z79.899 Other long term (current) drug therapy; Z82.49 Family history of ischemic heart disease and other diseases of the circulatory system; Z83.3 Family history of diabetes mellitus; Z95.1 Presence of aortocoronary bypass graft; Z95.5 Presence of coronary angioplasty implant and graft; I50.22 Chronic systolic (congestive) heart failure; E11.21 Type 2 diabetes mellitus with diabetic nephropathy; I65.23 Occlusion and stenosis of bilateral carotid arteries; N39.0 Urinary tract infection, site not specified; N40.0 Benign prostatic hyperplasia without lower urinary tract symptoms
CPT/HCPCS: 36415; 70450; 70496; 70498; 80053; 80061; 82962; 83036; 83735; 83880; 84100; 84443; 84484; 85025; 87040; 93005; 93306; 93886; G0378; J0696; J1815; J3490; Q9956